=== PATIENT | male | born 1960 | race Caucasian/White ===

== ENCOUNTER 2020-11-02 12:30 | Emergency (ER) | payer BC ==
[~2020-11-02] VITALS: Ht 172.7 cm; Wt 63.5 kg
[~2020-11-02 12:30] MED LIST: HYDACE5 PO
== END 2020-11-02 13:22 | disposition home or self-care (01) ==
LOC: ER 12:30
DX: U07.1 COVID-19 (principal)
CPT/HCPCS: 99284

== ENCOUNTER 2022-08-28 08:52 | Emergency (ER) | payer BC ==
[~2022-08-28] VITALS: Ht 172.7 cm; Wt 61.2 kg
[2022-08-28 09:19] VITALS: BP 128/78
== END 2022-08-28 09:58 | disposition home or self-care (01) ==
LOC: ER 08:52
DX: L72.3 Sebaceous cyst (principal)
CPT/HCPCS: 10060; 99282-25

== ENCOUNTER 2023-04-19 08:58 | Day surgery (SDC) | payer BC ==
[~2023-04-19] VITALS: Ht 172.7 cm; Wt 66.5 kg
[2023-04-19] MEDS ORDERED: ROSUVASTATIN CAL5 MG PO (09:12)
[2023-04-19] MEDS ORDERED: ESCI10 PO (09:12)
[2023-04-19] MEDS ORDERED: BUPROPION XL150 M1 PO (09:13)
[2023-04-19] MEDS ORDERED: SILDENAFIL CIT100 MG PO (09:13)
[2023-04-19] MEDS ORDERED: IBU800 M1 PO (09:13)
[2023-04-19 14:03] VITALS: BP 107/63
--- NOTE | 2023-04-19 16:41 | NUR ---
04/19/23 1641 Michael Carrion IV REMOVED INTACT. SITE WNL. PT REPORTED 8/10 PAIN UPON D/C. FLACC 0-05/24. HE STATED PAIN WAS TOLERABLE FOR D/C AND EXPRESSED READINESS TO RETURN HOME. HE REFUSED IV PAIN MEDICATION. P/T'S O2 SATURATION DROPPED TO 80'S FOR BRIEF PERIODS UPON ARRIVAL IN SDU. O2 WOULD RISE TO >94% WITH DEEP BREATHS. HE DENIED RESPIRATORY SYMPTOMS--INCLUDING DIZZINESS AND SOB--AND NONE WERE OBSERVED. P/T WAS GIVEN INCENTIVE SPIROMETER AND INSTRUCTED IN ITS USE. PULSE OXIMETER WAS SWITCHED FROM TOE TO FINGER AT 1410 AND O2 MAINTAINED >95% THROUGHOUT THE REST OF P/T'S STAY IN SDU.
== END 2023-04-19 15:07 | disposition home or self-care (01) ==
LOC: ORSCSDS 08:58
PROVIDERS: Otolaryngology
PROC: 0NB50ZZ Excision of Right Temporal Bone, Open Approach (ICD-10-PCS; principal; 2023-04-19 10:00)
PROC: 09Q50ZZ Repair Right Middle Ear, Open Approach (ICD-10-PCS; principal; 2023-04-19 10:00)
DX: H71.13 Cholesteatoma of tympanum, bilateral (principal); K21.9 Gastro-esophageal reflux disease without esophagitis; F17.210 Nicotine dependence, cigarettes, uncomplicated; Z79.899 Other long term (current) drug therapy
CPT/HCPCS: 88305; A9270; J0171; J1100; J2250; J2371; J2405; J2704; J3010; J3301; J7120

== ENCOUNTER 2023-06-21 08:49 | Day surgery (SDC) | payer BC ==
[~2023-06-21] VITALS: Ht 172.7 cm; Wt 64.4 kg
[~2023-06-21 08:49] MED LIST changes: +BUPROPION XL150 M1 PO; +Dexamethasone Sod Phos 10 MG/ML 1ML VIAL ONE; +ESCI10 PO; +FentaNYL Citrate 50 MCG/ML 2 ML Injection ONE; +IBU800 M1 PO; +Lactated Ringer's 1,000 ML IV ONE; +Ondansetron HCl 2 MG / ML 2ML Vial ONE; +ROSUVASTATIN CAL5 MG PO; +Rocuronium Bromide 10 MG/ML 5ML Injection IV ONE; +SILDENAFIL CIT100 MG PO; +Sugammadex Sodium 200 MG/2ML SDV (100 MG/ML) ONE; +propofoL 20 ML IV ONE
[2023-06-21] MEDS ORDERED: Lactated Ringer's 1,000 ML IV ONE ×2 (09:24→12:11)
[2023-06-21] MEDS ORDERED: Midazolam HCl 1MG / ML 2ML Vial ONE (10:52)
[2023-06-21] MEDS ORDERED: EPINEPhrine HCl 1 MG/ML 1ML Amp ONE (11:21)
[2023-06-21] MEDS ORDERED: Ciprofloxacin 0.3% Opth Soln 2.5 ML BTL ONE (11:21)
[2023-06-21] MEDS ORDERED: Triamcinolone Inj Susp 40 MG / ML 1ML Vial ONE (11:21)
[2023-06-21] MEDS ORDERED: Lidocaine 1%-Epineph 1:100000 20 ML MDV XX ONE (11:35)
[2023-06-21] MEDS ORDERED: FentaNYL Citrate 50 MCG/ML 2 ML Injection ONE (13:47)
[2023-06-21 13:54] VITALS: BP 150/82
[2023-06-21] MEDS ORDERED: OxyCODONE HCL 5 MG TAB ONE (14:06)
--- NOTE | 2023-06-21 14:56 | NUR ---
06/21/23 1456 Michael Carrion PT REPORTED 5/10 PAIN UPON D/C. HE DESCRIBED PAIN TOLERABLE, REFUSED FURTHER IV PAIN MEDICATION, AND EXPRESSED READINESS TO RETURN HOME.
== END 2023-06-21 14:40 | disposition home or self-care (01) ==
LOC: ORSCSDS 08:49
PROVIDERS: Otolaryngology
PROC: 09Q87ZZ Repair Left Tympanic Membrane, Via Natural or Artificial Opening (ICD-10-PCS; principal; 2023-06-21 10:30)
DX: H71.13 Cholesteatoma of tympanum, bilateral (principal); F17.210 Nicotine dependence, cigarettes, uncomplicated; K21.9 Gastro-esophageal reflux disease without esophagitis; Z79.899 Other long term (current) drug therapy
CPT/HCPCS: A9270; J0171; J1100; J2250; J2405; J2704; J3010; J3301; J7120